=== PATIENT | female | born 1955 | race Caucasian/White ===

== ENCOUNTER 2022-11-09 13:35 | Emergency (ER) | payer MEDICARE, MEDICAID ==
[~2022-11-09] VITALS: Ht 149.9 cm; Wt 54.0 kg
[~2022-11-09 13:35] MED LIST: IBUP-24 PO
[2022-11-09] MEDS ORDERED: HYDR-3965 PO (17:27)
[2022-11-09] MEDS ORDERED: IBUP-1985 PO (17:27)
[2022-11-09] MEDS ORDERED: HYDROcodone/acetaminophen 10/325mg tab PO ONE (17:30)
--- NOTE | 2022-11-09 18:30 | NUR ---
[facility] CONTACTED REGARDING STATUS OF PATIENT.
--- NOTE | 2022-11-09 18:31 | NUR ---
[facility] CONTACTED TO TRANSPORT PATIENT BACK TO [facility].
--- NOTE | 2022-11-09 19:00 | NUR ---
[facility] EN ROUTE.
--- NOTE | 2022-11-09 19:21 | NUR ---
[facility] ARRIVED.
[2022-11-09 19:23] VITALS: BP 150/66
== END 2022-11-09 19:50 ==
LOC: ER 13:36
DX: S82.832A Other fracture of upper and lower end of left fibula, initial encounter for closed fracture (principal); Z88.5 Allergy status to narcotic agent; W01.0XXA Fall on same level from slipping, tripping and stumbling without subsequent striking against object, initial encounter; Y93.89 Activity, other specified; Y92.89 Other specified places as the place of occurrence of the external cause; Y99.8 Other external cause status
CPT/HCPCS: 29515; 73590; 73630; 99284; A6449

== ENCOUNTER 2022-12-06 11:59 | Inpatient (IN) | payer MEDICARE, MEDICAID ==
[~2022-12-06] VITALS: Ht 152.4 cm; Wt 55.9 kg
[~2022-12-06 11:59] MED LIST changes: +ASCO500C17 PO; +ESCI5TAB PO; +FERR-39 PO; +FOLI1TAB27 PO; +HYDR-3965 PO; -IBUP-24 PO; +LISI5TAB22 PO; +MAGN64TA10 PO; +MULT-1085 PO; +POTA-207 PO; +THIA100T70 PO; +ceFAZolin inj. 2,000 MG in dextrose 5%-water 100 ML IV ONE; +famotidine 20mg tablet PO ONE
[2022-12-06] MEDS: ringers solution, lacted 1,000 ML IV SCH ×3 (13:08→19:34)
[2022-12-06 13:09] LABS: BASOPHILS # (AUTO) 0.1 X10'3 (0-0.2); BASOPHILS % (AUTO) 0.6 % (0-1); EOSINOPHILS # (AUTO) 0.4 X10'3 (0-0.9); EOSINOPHILS % (AUTO) 3.7 % (0-6); LYMPHOCYTES # (AUTO) 1.5 X10'3 (1.1-4.8); LYMPHOCYTES % (AUTO) 16.1 % (21-51); MEAN CORPUSCULAR HEMOGLOBIN 28.2 PG (27.0-31.0); MEAN CORPUSCULAR HGB CONC 33.2 g/dL (33.0-36.5); MEAN CORPUSCULAR VOLUME 84.9 FL (78-98); MONOCYTES # (AUTO) 0.9 X10'3 (0-0.9); MONOCYTES % (AUTO) 9.1 % (2-12); NEUTROPHILS # (AUTO) 6.6 X10'3 (1.8-7.7); NEUTROPHILS % (AUTO) 70.5 % (42-75); PRE OP HEMATOCRIT 37.8 % (35.0-45.0); PRE OP HEMOGLOBIN 12.5 g/dL (12.0-16.0); PRE OP PLATELET COUNT 457 X10'3 (140-440); RED BLOOD COUNT 4.45 X10'6 (4.20-5.60); RED CELL DISTRIBUTION WIDTH 13.5 % (11.5-14.5)
[2022-12-06 13:21] LABS: ALBUMIN 3.6 G/DL (3.4-5.0); ALBUMIN/GLOBULIN RATIO 0.9 (1.1-1.5); ALKALINE PHOSPHATASE 111 IU/L (46-116); BLOOD UREA NITROGEN 11 MG/DL (7-18); BUN/CREATININE RATIO 23.9 (6.6-38.0); CALCIUM 9.5 MG/DL (8.5-10.1); CHLORIDE 94 MMOL/L (99-107); CREATININE 0.46 MG/DL (0.40-0.90); PRE OP ALT 15 U/L (30-65); PRE OP ANION GAP 6 (8-16); PRE OP AST 19 U/L (10-37); PRE OP BILIRUB, TOTAL 0.4 MG/DL (0.0-1.0); PRE OP GLUCOSE 85 MG/DL (70-104); PRE OP POTASSIUM 4.1 MMOL/L (3.4-5.1); TOTAL CARBON DIOXIDE 27.1 MMOL/L (24-32); TOTAL PROTEIN 7.6 G/DL (6.4-8.2); eGFR > 90 ML/MIN
[2022-12-06 13:46] LABS: PRE OP SODIUM 127 MMOL/L (135-145)
[2022-12-06 13:52] VITALS: BP 130/94
--- NOTE | 2022-12-06 14:22 | NUR ---
LABS DRAWN ON THIS PATIENT. NA+ CAME BACK AT 127. ANESTHESIOLOGIST HAS CANCELED SURGERY AND REQUESTED ADMIT FOR THIS PATIENT. PATIENT TO BE ADMITTED AND SODIUM LEVEL CORRECTED BEFORE SURGERY CAN BE DONE. HOSPITALIST PAGED AT 0798 AND TRAILER SECTIONS ASSEMBLER NOTIFIED PATIENT NEEDS A ROOM.
--- NOTE | 2022-12-06 14:36 | NUR ---
I CALLED [facility] TO LET THE DESK NURSE KNOW THAT PATIENT WOULD BE ADMITTED AND SURGERY IS POSTPONED UNTIL SODIUM LEVEL IS CORRECTED..
[2022-12-06] MEDS ORDERED: potassium Cl 20 mEq SR tablet PO PRN ×2 (15:10)
[2022-12-06] MEDS ORDERED: potassium Cl 40MEQ/1/2NS 520ml 520 ML IV PRN (15:10)
[2022-12-06] MEDS ORDERED: magnesium 4gm in 100ml NS 100 ML IV PRN (15:10)
[2022-12-06] MEDS ORDERED: HYDROcodone/acetaminophen 5mg/325mg tablet PO PRN (15:10)
[2022-12-06] MEDS ORDERED: magnesium Cl slow-release 64mg tablet PO PRN (15:10)
[2022-12-06] MEDS ORDERED: morphine 2 MG/ML inj. syringe IV PRN ×2 (15:10)
[2022-12-06] MEDS ORDERED: acetaminophen 325mg tablet PO PRN ×2 (15:10)
[2022-12-06] MEDS ORDERED: ondansetron/PF 4mg/2ml inj IV PRN (15:10)
[2022-12-06 15:30] VITALS: BP 136/78
[2022-12-06] MEDS: normal saline 1000ml 1,000 ML IV SCH (15:59)
[2022-12-06] MEDS: HYDROcodone/acetaminophen 10/325mg tab PO PRN ×2 (16:02→20:50)
[2022-12-06 18:00] VITALS: BP 151/80
--- NOTE | 2022-12-06 18:10 | NUR ---
Patient in room KI 347. I have received report from RODDY Brownlee and had the opportunity to ask questions and assume patient care.
--- NOTE | 2022-12-06 18:31 | NUR ---
Problems reprioritized. Patient report given, questions answered & plan of care reviewed with RODDY Weaver.
[2022-12-06] MEDS: non-formulary drug (Thiamine Mononitrate (Vitamin B-1) 1 TAB) PO SCH (20:00)
[2022-12-06] MEDS: sodium chloride 1gm tablet PO SCH (20:50)
[2022-12-06] MEDS: HALLS - SOOTHE MENTHOL 1.8 MG cough drop LOZENGE MM PRN ×2 (20:51→22:58)
[2022-12-06] MEDS: heparin, porcine 5000 units/ml vial SQ SCH (20:52)
[2022-12-06] MEDS ORDERED: temazepam 15mg capsule PO PRN (21:00)
[2022-12-06 22:00] VITALS: BP 124/74
[2022-12-07] VITALS (18 sets, daily range): BP systolic 109–156; BP diastolic 67–106
[2022-12-07] MEDS: HYDROcodone/acetaminophen 10/325mg tab PO PRN ×5 (01:09→23:04)
[2022-12-07] MEDS: normal saline 1000ml 1,000 ML IV SCH ×3 (01:10→19:36)
--- NOTE | 2022-12-07 06:39 | NUR ---
Problems reprioritized. Patient report given, questions answered & plan of care reviewed with RODDY Stewart.
--- NOTE | 2022-12-07 06:47 | NUR ---
Patient in room KI 347. I have received report from Marleny and had the opportunity to ask questions and assume patient care.
[2022-12-07] MEDS: heparin, porcine 5000 units/ml vial SQ SCH ×2 (07:20→19:39)
[2022-12-07] MEDS: ESCITALOPRAM OXALATE 5 MG TABLET PO SCH (07:52)
[2022-12-07 07:53] LABS: BASOPHILS # (AUTO) 0.1 X10'3 (0-0.2); BASOPHILS % (AUTO) 0.6 % (0-1); EOSINOPHILS # (AUTO) 0.4 X10'3 (0-0.9); EOSINOPHILS % (AUTO) 3.9 % (0-6); LYMPHOCYTES # (AUTO) 1.5 X10'3 (1.1-4.8); LYMPHOCYTES % (AUTO) 14.9 % (21-51); MEAN CORPUSCULAR HGB CONC 32.8 g/dL (33.0-36.5); MEAN CORPUSCULAR VOLUME 85.6 FL (78-98); MEAN PLATELET VOLUME 7.6 FL (7.4-10.4); MONOCYTES # (AUTO) 0.9 X10'3 (0-0.9); MONOCYTES % (AUTO) 8.5 % (2-12); NEUTROPHILS # (AUTO) 7.4 X10'3 (1.8-7.7); NEUTROPHILS % (AUTO) 72.1 % (42-75); PRE OP HEMOGLOBIN 12.1 g/dL (12.0-16.0); PRE OP PLATELET COUNT 437 X10'3 (140-440); RED BLOOD COUNT 4.32 X10'6 (4.20-5.60); RED CELL DISTRIBUTION WIDTH 13.6 % (11.5-14.5)
[2022-12-07] MEDS: lisinopril 5mg tablet PO SCH (07:53)
[2022-12-07] MEDS: potassium Cl 20 mEq SR tablet PO SCH (07:57)
[2022-12-07] MEDS: folic acid 1mg tablet PO SCH (08:00)
[2022-12-07] MEDS: non-formulary drug (Thiamine Mononitrate (Vitamin B-1) 1 TAB) PO SCH (08:00)
[2022-12-07 08:04] LABS: ALBUMIN 3.1 G/DL (3.4-5.0); BLOOD UREA NITROGEN 10 MG/DL (7-18); CHLORIDE 101 MMOL/L (99-107); PRE OP ANION GAP 5 (8-16); PRE OP GLUCOSE 87 MG/DL (70-104); PRE OP POTASSIUM 4.2 MMOL/L (3.4-5.1); PRE OP SODIUM 133 MMOL/L (135-145); TOTAL CARBON DIOXIDE 26.7 MMOL/L (24-32); eGFR > 90 ML/MIN
[2022-12-07] MEDS: sodium chloride 1gm tablet PO SCH ×4 (08:14→23:04)
[2022-12-07] MEDS: HALLS - SOOTHE MENTHOL 1.8 MG cough drop LOZENGE MM PRN ×2 (08:14→23:15)
[2022-12-07 08:45] LABS: PRE OP INR 1.1 INR; PRE OP PROTIME 11.1 SECONDS (9.0-12.0)
[2022-12-07] MEDS ORDERED: ringers solution, lacted 1,000 ML IV SCH ×2 (09:55→15:25)
[2022-12-07] MEDS ORDERED: ondansetron/PF 4mg/2ml inj IV PRN ×2 (09:55→15:25)
[2022-12-07] MEDS ORDERED: meperidine/PF 25mg/ml syringe IV PRN ×6 (09:55→15:25)
[2022-12-07] MEDS ORDERED: morphine 4 MG/ML inj SYRINge IV PRN ×2 (09:55→15:25)
[2022-12-07] MEDS ORDERED: morphine 2 MG/ML inj. syringe IV PRN ×2 (09:55→15:25)
[2022-12-07] MEDS ORDERED: proCHLORperazine 10 MG/2 ml inj IV PRN ×2 (09:55→15:25)
--- NOTE | 2022-12-07 10:09 | NUR ---
Report called an given to Eugene in recovery.
[2022-12-07] MEDS ORDERED: BUPIVAcaine 0.5% inj/PF 0 ML ONE (11:13)
[2022-12-07] MEDS ORDERED: bacitracin 15gm ointment TP ONE (11:13)
--- NOTE | 2022-12-07 12:34 | NUR ---
AGREE WITH PHYSICAL ASSESSMENT DONE BY MARY PEREYRA Addendum: 12/07/22 at 1235 by Yumiko Pierce RN Amended: Links added.
[2022-12-07] MEDS ORDERED: sevoflurane 250ml liquid IH ONE (14:09)
[2022-12-07] MEDS ORDERED: dexamethasone sod phosphate 10mg/ml inj ONE (14:09)
[2022-12-07] MEDS ORDERED: labetalol 20mg/4ml (5mg/ml) syringe IV ONE (14:09)
[2022-12-07] MEDS ORDERED: cloNIDine hcl/PF 100mcg/ml inj ONE (14:12)
[2022-12-07] MEDS ORDERED: fentaNYL/PF 50MCG/1 ML 2ML syringe ONE ×2 (14:13→15:48)
[2022-12-07] MEDS ORDERED: midazolam 1 mg/ML 2ml injection ONE (14:13)
[2022-12-07] MEDS ORDERED: propofol inj 20 ML IV ONE (14:13)
[2022-12-07] MEDS ORDERED: ROPIVAcaine 0.5% (5mg/ml) 30ml vial ONE (14:14)
[2022-12-07] MEDS ORDERED: ceFAZolin 1000mg inj ONE ×2 (14:38)
[2022-12-07] MEDS ORDERED: ondansetron/PF 4mg/2ml inj ONE (16:38)
[2022-12-07] MEDS ORDERED: PCA WASTE DOCUMENTATION 1 MG ML MC SCH (16:53)
[2022-12-07] MEDS ORDERED: acetaminophen 325mg tablet PO PRN (16:55)
[2022-12-07] MEDS ORDERED: bisacodyl 10mg suppository rectal RC PRN (16:55)
[2022-12-07] MEDS ORDERED: HYDROcodone/acetaminophen 10/325mg tab PO PRN (16:55)
[2022-12-07] MEDS ORDERED: magnesium hydroxide 30ml (MOM) UD suspension PO PRN (16:55)
[2022-12-07] MEDS ORDERED: diphenhydrAMINE 25mg capsule PO PRN (16:55)
--- NOTE | 2022-12-07 17:09 | NUR ---
Received from OR via HOSPITAL BED TO ROOM 4, accompanied by Anesthesiologist DR VIDES and report given by Anesthesiolgist. PT PRESENT WITH SPINT ON RIGHT FOOT, PER DR NICOLE A PIN IS ON THE EXTERIOR OF LATERAL LEFT HEEL. PIV 20 G LEFT HAND, VSS. Addendum: 12/07/22 at 1721 by Roz Gottlieb RN, RN Amended: Links added.
--- NOTE | 2022-12-07 17:43 | NUR ---
PAGER ID: [phone] MESSAGE: Magui Conrad [phone]. Pt is currently in recovery, No ETA back to surgical. Kayleigh [phone]
--- NOTE | 2022-12-07 17:59 | NUR ---
Report called to receiving nurse MARY PEREYRA. Transferred via HOSPITAL BED BACK TO ROOM 347B. BED IN LOW LOCKED POSITION WITH CALL LIGHT IN REACH, PT'S CHART TAKEN TO NURSES STATION Belongings WERE LEFT IN PT ROOM. Special Issues communicated to receiving nurse. Addendum: 12/07/22 at 1802 by Roz Gottlieb RN RN Amended: Links added.
--- NOTE | 2022-12-07 18:14 | NUR ---
Problems reprioritized. Patient report given to Jacqueline, questions answered & plan of care reviewed with .
--- NOTE | 2022-12-07 18:27 | NUR ---
Problems reprioritized. Patient report given to Jacqueline PEREYRA, questions answered & plan of care reviewed with .
--- NOTE | 2022-12-07 18:28 | NUR ---
Patient in room KI 347. I have received report from PatRN and RODDY Victor and had the opportunity to ask questions and assume patient care.
[2022-12-07] MEDS: potassium cl 20mEq in 1/2 NS 1,000 ML IV SCH (19:02)
[2022-12-07] MEDS: thiamine 100mg tablet PO SCH (19:39)
[2022-12-07] MEDS ORDERED: sennosides 8.6mg tablet PO SCH (21:00)
[2022-12-07] MEDS: ceFAZolin/D5W- 1GM premix 50 ML IV SCH (23:11)
[2022-12-08 01:45] VITALS: BP 135/85
[2022-12-08] MEDS: potassium cl 20mEq in 1/2 NS 1,000 ML IV SCH (02:52)
[2022-12-08] MEDS: HYDROcodone/acetaminophen 10/325mg tab PO PRN ×3 (04:24→13:52)
[2022-12-08 05:00] VITALS: BP 135/44
[2022-12-08 05:45] VITALS: BP 121/74
[2022-12-08 06:07] LABS: BASOPHILS % (AUTO) 0.2 % (0-1); EOSINOPHILS % (AUTO) 0 % (0-6); HEMATOCRIT 34.6 % (35.0-45.0); HEMOGLOBIN 11.7 g/dl (12.0-16.0); LYMPHOCYTES # (AUTO) 0.6 X10'3 (1.1-4.8); LYMPHOCYTES % (AUTO) 6.5 % (21-51); MEAN CORPUSCULAR HEMOGLOBIN 28.8 PG (27.0-31.0); MEAN CORPUSCULAR HGB CONC 33.7 g/dL (33.0-36.5); MEAN CORPUSCULAR VOLUME 85.5 FL (78-98); MEAN PLATELET VOLUME 7.6 FL (7.4-10.4); MONOCYTES # (AUTO) 0.2 X10'3 (0-0.9); MONOCYTES % (AUTO) 2.3 % (2-12); NEUTROPHILS # (AUTO) 8.3 X10'3 (1.8-7.7); PLATELET COUNT 422 X10'3 (140-440); RED BLOOD COUNT 4.05 X10'6 (4.20-5.60); RED CELL DISTRIBUTION WIDTH 13.9 % (11.5-14.5); WHITE BLOOD COUNT 9.2 X10'3 (4.5-11.0)
[2022-12-08 06:22] LABS: ANION GAP 5 (8-16); CHLORIDE 98 MMOL/L (99-107); SODIUM 129 MMOL/L (135-145)
--- NOTE | 2022-12-08 06:27 | NUR ---
Problems reprioritized. Patient report given, questions answered & plan of care reviewed with RODDY Richard.
[2022-12-08] MEDS: normal saline 1000ml 1,000 ML IV SCH ×2 (06:37→07:20)
[2022-12-08 06:56] VITALS: BP 135/75
[2022-12-08] MEDS: potassium Cl 20 mEq SR tablet PO SCH (07:44)
[2022-12-08] MEDS: folic acid 1mg tablet PO SCH (08:20)
[2022-12-08] MEDS: ceFAZolin/D5W- 1GM premix 50 ML IV SCH (08:20)
[2022-12-08] MEDS: ESCITALOPRAM OXALATE 5 MG TABLET PO SCH (08:21)
[2022-12-08] MEDS: sodium chloride 1gm tablet PO SCH ×2 (08:22→13:40)
[2022-12-08] MEDS: lisinopril 5mg tablet PO SCH (08:24)
[2022-12-08] MEDS: thiamine 100mg tablet PO SCH (08:25)
[2022-12-08] MEDS: heparin, porcine 5000 units/ml vial SQ SCH (08:27)
--- NOTE | 2022-12-08 09:00 | NUR ---
REASSESSMENT OF PAIN LEVEN AND VITALS 30 MINUTES AFTER PRN PAIN MEDICATION ADMINISTERED Addendum: 12/08/22 at 1125 by Albertina SIU Amended: Links added.
[2022-12-08 10:00] VITALS: BP 146/89
[2022-12-08 11:21] VITALS: BP 138/72
--- NOTE | 2022-12-08 14:30 | NUR ---
PT PICKED UP FOR TRANSPORT BACK TO [facility]IA [facility]. IV TAKEN OUT BY STUDENT RN WITH SUPERVISION, BELONGINGS COLLECTED FROM ROOM. PAPERWORK GIVEN TO TRANSPORT VIA [facility]IV[facility] PREPAREDNESS COORDINATOR AND CHARGE NURSE GIANA HELPED [facility] GET PATIENT READY TO GO WHEN THEY ARRIVED. PT APPEARED APPROPRIATE FOR DISCHARGE PRIOR TO BONE TENDER AND REPORT CALLED TO FACILITY PREVIOUSLY. TELE DC'D AND RETURNED TO TELE BOX.
--- NOTE | 2022-12-08 14:31 | NUR ---
Report called to Niraj, nurse at [facility]. She is familiar with patient. Patient anticipated for dc at 1430
== END 2022-12-08 14:50 | DRG 493 ==
LOC: PAS 11:59 → SUR 3N 15:12 → UNDOADMIN 15:18 → SUR 3N 15:18 → UNDODISIN 12-08 14:50
PROVIDERS: ADMIT Internal Medicine; ATTEND Podiatrist Foot & Ankle Surgery
PROC: 0QSH04Z Reposition Left Tibia with Internal Fixation Device, Open Approach (ICD-10-PCS; 2022-12-07)
PROC: 0SSG04Z Reposition Left Ankle Joint with Internal Fixation Device, Open Approach (ICD-10-PCS; 2022-12-07)
PROC: 3E0T3BZ Introduction of Anesthetic Agent into Peripheral Nerves and Plexi, Percutaneous Approach (ICD-10-PCS; 2022-12-07)
PROC: 0QSK04Z Reposition Left Fibula with Internal Fixation Device, Open Approach (ICD-10-PCS; principal; 2022-12-07 14:09)
DX: S82.842A Displaced bimalleolar fracture of left lower leg, initial encounter for closed fracture (principal); E87.1 Hypo-osmolality and hyponatremia; F32.A Depression, unspecified; W01.0XXA Fall on same level from slipping, tripping and stumbling without subsequent striking against object, initial encounter; F10.20 Alcohol dependence, uncomplicated; M25.372 Other instability, left ankle; M81.0 Age-related osteoporosis without current pathological fracture; Z88.5 Allergy status to narcotic agent; Z79.899 Other long term (current) drug therapy; Y93.89 Activity, other specified; Y92.89 Other specified places as the place of occurrence of the external cause; Y99.8 Other external cause status
CPT/HCPCS: 36415; 71045; 73610; 76000; 80048; 80051; 80053; 82948; 85025; 85610; 85730; 87081; 93005; 97110; 97161; 97530; A4615; A4618; A6223; A6253; A6449; A7000; C1713; C1769; G0378; J0690; J0735; J1100; J1644; J2250; J2405; J2704; J2795; J3010; J3480; J3490; J7030; J7060; J7120; S0020

== ENCOUNTER 2023-02-21 17:07 | Emergency (ER) | payer MEDICARE, MEDICAID ==
[~2023-02-21] VITALS: Ht 152.4 cm; Wt 56.8 kg
[~2023-02-21 17:07] MED LIST changes: +CYCL-395 PO; +LISI40TA13 PO; -LISI5TAB22 PO; -MAGN64TA10 PO; -ceFAZolin inj. 2,000 MG in dextrose 5%-water 100 ML IV ONE; -famotidine 20mg tablet PO ONE
[2023-02-21 17:20] VITALS: BP 136/80
--- NOTE | 2023-02-21 18:09 | NUR ---
SPOKE WITH [facility] REGARDING TRANSPORTATION, INSTRUCTED TO CALL [facility].
--- NOTE | 2023-02-21 18:10 | NUR ---
[facility] EN ROUTE TO TAKE PT BACK TO [facility].
--- NOTE | 2023-02-21 18:28 | NUR ---
[facility] ARRIVED.
== END 2023-02-21 18:35 | disposition home or self-care (01) ==
LOC: ER 17:08
DX: Z48.89 Encounter for other specified surgical aftercare (principal)
CPT/HCPCS: 29515; 99283; A6449

== ENCOUNTER 2023-02-28 12:12 | Observation (INO) | payer MEDICARE, MEDICAID ==
[~2023-02-28] VITALS: Ht 149.9 cm; Wt 56.2 kg
[2023-02-28] VITALS (17 sets, daily range): BP systolic 95–164; BP diastolic 54–86
[~2023-02-28 12:12] MED LIST changes: +famotidine 20mg tablet PO ONE; +ringers solution, lacted 1,000 ML IV SCH
[2023-02-28 13:29] LABS: BASOPHILS # (AUTO) 0.1 X10'3 (0-0.2); BASOPHILS % (AUTO) 0.5 % (0-1); EOSINOPHILS # (AUTO) 0.4 X10'3 (0-0.9); EOSINOPHILS % (AUTO) 3.5 % (0-6); LYMPHOCYTES # (AUTO) 1.4 X10'3 (1.1-4.8); LYMPHOCYTES % (AUTO) 13.5 % (21-51); MEAN CORPUSCULAR HGB CONC 33.7 g/dL (33.0-36.5); MEAN CORPUSCULAR VOLUME 83.1 FL (78-98); MEAN PLATELET VOLUME 7.5 FL (7.4-10.4); MONOCYTES # (AUTO) 0.7 X10'3 (0-0.9); MONOCYTES % (AUTO) 6.5 % (2-12); NEUTROPHILS # (AUTO) 7.9 X10'3 (1.8-7.7); PRE OP HEMATOCRIT 37.4 % (35.0-45.0); PRE OP HEMOGLOBIN 12.6 g/dL (12.0-16.0); PRE OP PLATELET COUNT 432 X10'3 (140-440); RED CELL DISTRIBUTION WIDTH 13.1 % (11.5-14.5)
[2023-02-28 13:30] LABS: ALANINE AMINOTRANSFERASE 15 U/L (12-78); ALBUMIN 3.8 G/DL (3.4-5.0); ALKALINE PHOSPHATASE 109 IU/L (46-116); ANION GAP 7 (8-16); ASPARTATE AMINO TRANSFERASE 12 U/L (10-37); BILIRUBIN,TOTAL 0.4 MG/DL (0.1-1.0); BLOOD UREA NITROGEN 10 MG/DL (7-18); BUN/CREATININE RATIO 27.8 (10.0-20.0); CALCIUM 9.4 MG/DL (8.5-10.1); CHLORIDE 96 MMOL/L (99-107); CREATININE 0.36 MG/DL (0.40-0.90); GLUCOSE 85 MG/DL (70-104); POTASSIUM 4.1 MMOL/L (3.5-5.1); SODIUM 133 MMOL/L (135-145); TOTAL CARBON DIOXIDE 29.6 MMOL/L (24-32); TOTAL PROTEIN 7.7 G/DL (6.4-8.2); eGFR > 90 ML/MIN
[2023-02-28] MEDS ORDERED: bacitracin 15gm ointment TP ONE (14:31)
[2023-02-28 14:35] LABS: CLARITY,URINE CLEAR (Clear); COLOR,URINE STRAW (Yellow); GLUCOSE, URINE NEGATIVE (Neg); KETONES,URINE 15 mg/dl (Neg); LEUKOCYTE ESTERASE ,URINE SMALL (Neg); NITRITES, URINE NEGATIVE (Neg); OCCULT BLOOD,URINE NEGATIVE (Neg); PROTEIN,URINE NEGATIVE (Neg); UROBILINOGEN,URINE 0.2 E.U/dL (0.2-1.0)
[2023-02-28 14:40] LABS: UA COLLECTION TYPE NON-SPECIFIED
[2023-02-28 14:42] LABS: BACTERIA,URINE 2+ /HPF (Neg); MUCUS STRANDS NONE SEEN /LPF (Neg); RBC,URINE NONE SEEN /HPF (0-2)
[2023-02-28 14:43] LABS: SQUAMOUS EPITHELIAL CELL,UR MANY /LPF (FEW)
[2023-02-28] MEDS ORDERED: midazolam 1 mg/ML 2ml injection ONE (15:59)
[2023-02-28] MEDS ORDERED: fentaNYL/PF 50MCG/1 ML 2ML syringe ONE ×3 (15:59→18:14)
[2023-02-28] MEDS ORDERED: dexamethasone sod phosphate 4mg/ml inj. ONE (16:00)
[2023-02-28] MEDS ORDERED: LIDOcaine 2% (20mg/ml) 5ml vial ONE (16:00)
[2023-02-28] MEDS ORDERED: dexmedetomidine 200mcg/2ml inj. IV ONE (16:00)
[2023-02-28] MEDS ORDERED: sevoflurane 250ml liquid IH ONE (16:00)
[2023-02-28] MEDS ORDERED: propofol inj 20 ML IV ONE (16:00)
[2023-02-28] MEDS ORDERED: ROPIVAcaine 0.5% (5mg/ml) 30ml vial ONE ×2 (16:00)
[2023-02-28] MEDS ORDERED: ondansetron/PF 4mg/2ml inj ONE (16:00)
[2023-02-28] MEDS ORDERED: acetaminophen 1,000mg/100ml IV 100 ML IV ONE (17:01)
[2023-02-28] MEDS ORDERED: HYDROmorphone/PF 0.2 MG/ML SYRINGE IV PRN ×2 (17:45)
[2023-02-28] MEDS ORDERED: ringers solution, lacted 1,000 ML IV SCH (17:45)
[2023-02-28] MEDS ORDERED: morphine 2 MG/ML inj. syringe IV PRN (17:45)
[2023-02-28] MEDS ORDERED: ondansetron/PF 4mg/2ml inj IV PRN (17:45)
[2023-02-28] MEDS ORDERED: morphine 4 MG/ML inj SYRINge IV PRN (17:45)
[2023-02-28] MEDS ORDERED: hydrALAZINE 20mg/ml inj. IV PRN (17:45)
[2023-02-28] MEDS ORDERED: labetalol 20mg/4ml (5mg/ml) syringe IV PRN (17:45)
--- NOTE | 2023-02-28 19:07 | NUR ---
Received from OR via BED, accompanied by Anesthesiologist and report given by CYNDI Anesthesiologist. PATIENT WAKING UP, NO S/S OF PAIN, V/S WNL, SCD ON, 20G TO RIGHT AC, LEFT FOOT PRIMITIVO WRAP DRESSING W/ 4X4 C/D/I. ICE AND ELEVATED LEFT LOWER LEG. Addendum: 02/28/23 at 1932 by Leander Cool RN Amended: Links added.
[2023-02-28] MEDS ORDERED: acetaminophen 325mg tablet PO PRN (19:20)
[2023-02-28] MEDS ORDERED: magnesium hydroxide 30ml (MOM) UD suspension PO PRN (19:20)
[2023-02-28] MEDS ORDERED: naloxone 0.4 mg/ml inj IV PRN (19:20)
[2023-02-28] MEDS ORDERED: bisacodyl 10mg suppository rectal RC PRN (19:20)
--- NOTE | 2023-02-28 20:37 | NUR ---
PATIENT HAS MET ALL CRITERIA FOR TRANSFER TO PCU FLOOR. VSS. DRESSINGS INTACT. BED LOW, CALL LIGHT PRESENT AND 2 RAILS UP. RN PRESENT TO ACCEPT CARE OF PATIENT AND REPORT HAS BEEN CALLED. ALL QUESTIONS ANSWERED TO ACCEPTING RN. Addendum: 02/28/23 at 2040 by Leander Cool RN Amended: Links added.
[2023-02-28] MEDS: sennosides 8.6mg tablet PO SCH (21:00)
--- NOTE | 2023-02-28 21:30 | NUR ---
Patient in room PCU 3014. I have received report from and had the opportunity to ask questions and assume patient care frOM pleat patternmaker .
[2023-03-01] VITALS (8 sets, daily range): BP systolic 93–128; BP diastolic 52–83
[2023-03-01] MEDS: HYDROcodone/acetaminophen 10/325mg tab PO PRN ×5 (01:47→23:02)
[2023-03-01] MEDS ORDERED: cefazolin 2gm/D5W 100mL 100 ML IV ONE (05:30)
--- NOTE | 2023-03-01 06:50 | NUR ---
Problems reprioritized. Patient report given, questions answered & plan of care reviewed with Tisha PEREYRA.
--- NOTE | 2023-03-01 06:50 | NUR ---
Patient in room PCU 3014 A. I have received report from Ximena KENT and had the opportunity to ask questions and assume patient care. Pt is laying low fowlers in bed and is resting comfortably. Pt is on RA, No s/s of distress, or s/s of pain at this time. BLL, call light within reach, frequently used items in reach, frequent rounidng, stain remover socks on. Will contiinue to monitor.
[2023-03-01] MEDS: aspirin 325mg tablet PO SCH (08:39)
--- NOTE | 2023-03-01 18:25 | NUR ---
Problems reprioritized. Patient report given, questions answered & plan of care reviewed with Paola PEREYRA.
[2023-03-01] MEDS: sennosides 8.6mg tablet PO SCH (21:00)
[2023-03-02] MEDS: HYDROcodone/acetaminophen 10/325mg tab PO PRN ×3 (02:56→11:18)
[2023-03-02 04:17] VITALS: BP 126/78
[2023-03-02] MEDS ORDERED: cyclobenzaprine 10mg tablet PO PRN (04:20)
--- NOTE | 2023-03-02 06:44 | NUR ---
Problems reprioritized. Patient report given, questions answered & plan of care reviewed with HOWARD PEREYRA.
[2023-03-02 07:00] VITALS: BP 129/80
[2023-03-02] MEDS: aspirin 325mg tablet PO SCH (07:21)
== END 2023-03-02 11:33 ==
LOC: PAS 12:12 → PCU 3S 23:21
PROVIDERS: ADMIT Podiatrist Foot & Ankle Surgery; ATTEND Podiatrist Foot & Ankle Surgery
DX: S82.892A Other fracture of left lower leg, initial encounter for closed fracture (principal); M81.0 Age-related osteoporosis without current pathological fracture; I10 Essential (primary) hypertension; F32.A Depression, unspecified; X58.XXXA Exposure to other specified factors, initial encounter; Y93.89 Activity, other specified; Y92.89 Other specified places as the place of occurrence of the external cause; Z79.899 Other long term (current) drug therapy; Z87.891 Personal history of nicotine dependence
CPT/HCPCS: 20680; 27814; 36415; 73600; 76000; 80053; 81001; 82948; 85025; 93005; 97110; 97161; 97530; A6223; C1713; G0378; J0131; J0690; J1100; J2250; J2405; J2704; J2795; J3010; J3490; J7120; A4615; A4618; A6253; A6449; A7000

== ENCOUNTER 2024-01-18 14:27 | Emergency (ER) | payer MEDICARE, MEDICAID ==
[~2024-01-18] VITALS: Ht 170.2 cm; Wt 113.0 kg
[~2024-01-18 14:27] MED LIST changes: +CELE-127 PO; +ESCI-8 PO; -ESCI5TAB PO; -HYDR-3965 PO; +LOSA50TA64 PO; +QUET100T34 PO; -famotidine 20mg tablet PO ONE; -ringers solution, lacted 1,000 ML IV SCH
[2024-01-18 15:17] VITALS: TEMP 98.7
[2024-01-18 15:51] LABS: HEMATOCRIT 33.5 % (35.0-45.0); HEMOGLOBIN 10.6 g/dl (12.0-16.0); MEAN CORPUSCULAR HEMOGLOBIN 27.2 PG (27.0-31.0); MEAN CORPUSCULAR HGB CONC 31.5 g/dL (33.0-36.5); MEAN CORPUSCULAR VOLUME 86.3 FL (78-98); MEAN PLATELET VOLUME 8.4 FL (7.4-10.4); PLATELET COUNT 415 X10'3 (140-440); RED BLOOD COUNT 3.88 X10'6 (4.20-5.60); RED CELL DISTRIBUTION WIDTH 17.3 % (11.5-14.5); WHITE BLOOD COUNT 22.3 X10'3 (4.5-11.0)
[2024-01-18 16:11] LABS: ALANINE AMINOTRANSFERASE 28 U/L (12-78); ALBUMIN 2.2 G/DL (3.4-5.0); ALBUMIN/GLOBULIN RATIO 0.5 (1.1-1.5); ALKALINE PHOSPHATASE 121 IU/L (46-116); ANION GAP 13 (8-16); ANISOCYTOSIS 1+; ASPARTATE AMINO TRANSFERASE 16 U/L (10-37); BILIRUBIN,DIRECT 0.4 MG/DL (0-0.3); BILIRUBIN,TOTAL 0.6 MG/DL (0.1-1.0); BLOOD UREA NITROGEN 45 MG/DL (7-18); CALCIUM 7.6 MG/DL (8.5-10.1); CHLORIDE 102 MMOL/L (99-107); GLUCOSE 103 MG/DL (70-104); PLATELET ESTIMATE NORMAL; POTASSIUM 4.2 MMOL/L (3.5-5.1); SODIUM 133 MMOL/L (135-145); TOTAL CELLS COUNTED 100; TOTAL PROTEIN 6.3 G/DL (6.4-8.2); eCRCL 58 ML/MIN; eGFR 62 ML/MIN
[2024-01-18] MEDS ORDERED: iohexol 300mg/ml 100ml inj. ONE (16:40)
[2024-01-18] MEDS: morphine 4 MG/ML inj SYRINge IV ONE (16:42)
[2024-01-18] MEDS: normal saline 500ml IV soln 500 ML IV ONE (16:46)
[2024-01-18] MEDS: LidoCAINE 2% Topical Jelly 11mL syringe (UROJET) TOP ONE (16:48)
[2024-01-18] MEDS: piperacillin/tazo 4.5gm/100ml 100 ML IV ONE (17:53)
[2024-01-18 19:05] LABS: BILIRUBIN,URINE NEGATIVE (Neg); CLARITY,URINE SLIGHTLY CLOUDY (Clear); COLOR,URINE YELLOW (Yellow); GLUCOSE, URINE NEGATIVE (Neg); KETONES,URINE NEGATIVE (Neg); LEUKOCYTE ESTERASE ,URINE NEGATIVE (Neg); NITRITES, URINE NEGATIVE (Neg); OCCULT BLOOD,URINE NEGATIVE (Neg); PH,URINE 5.5 (4.8-8.0); PROTEIN,URINE TRACE mg/dl (Neg); UROBILINOGEN,URINE 0.2 E.U/dL (0.2-1.0)
[2024-01-18 19:07] LABS: UA COLLECTION TYPE FOLEY CATH
[2024-01-18 19:21] LABS: BACTERIA,URINE NONE SEEN /HPF (Neg); RBC,URINE NONE SEEN /HPF (0-2); WBC,URINE 0-4 /HPF (0-4)
[2024-01-18 19:22] LABS: MUCUS STRANDS NONE SEEN /LPF (Neg); SQUAMOUS EPITHELIAL CELL,UR MANY /LPF (FEW)
[2024-01-18] MEDS ORDERED: vancomycin inj 1,000 MG in normal saline 250ml IV soln 250 ML IV ONE (20:25)
[2024-01-18] MEDS ORDERED: vancomycin/NS 1 GM ADD-VANTAGE 250 ML IV ONE (20:31)
[2024-01-18] MEDS ORDERED: SULF1TAB49 PO (22:21)
[2024-01-18] MEDS ORDERED: CEPH-585 PO (22:21)
[2024-01-18] MEDS: vancomycin/NS 1 GM ADD-VANTAGE 250 ML IV ONE (23:00)
[2024-01-19 01:37] VITALS: BP 95/50; PULSE 68; RESP 18; O2SAT 98
== END 2024-01-19 01:39 | disposition home or self-care (01) ==
LOC: ER 14:27
DX: S31.109A Unspecified open wound of abdominal wall, unspecified quadrant without penetration into peritoneal cavity, initial encounter (principal); Z88.8 Allergy status to other drugs, medicaments and biological substances; Z88.5 Allergy status to narcotic agent; Z79.2 Long term (current) use of antibiotics; Z79.899 Other long term (current) drug therapy; X58.XXXA Exposure to other specified factors, initial encounter; Y93.89 Activity, other specified; Y92.89 Other specified places as the place of occurrence of the external cause; Y99.8 Other external cause status
CPT/HCPCS: 36415; 71045; 74177; 80048; 80076; 81001; 83605; 84145; 85007; 85025; 87040; 87070; 87075; 87077; 87186; 96365; 96367; 96375; 99285; J2270; J2543; J3370; J3490; J7030; J7040; Q9967; A4314; A6449; C1758

== ENCOUNTER 2024-09-03 09:34 | Outpatient (CLI) | payer MEDICARE, MEDICAID ==
[~2024-09-03 09:34] MED LIST changes: +CEPH-585 PO
[2024-09-03] MEDS ORDERED: diatr meglu/diatrizoate 30ml oral sol.-(3 dose) bottle ONE ×3 (09:52→10:02)
== END 2024-09-03 23:59 | disposition home or self-care (01) ==
LOC: RAD 09:34
PROVIDERS: ATTEND Surgery
DX: R93.3 Abnormal findings on diagnostic imaging of other parts of digestive tract (principal); I70.0 Atherosclerosis of aorta; Z98.890 Other specified postprocedural states
CPT/HCPCS: 74176; A4314; Q9963